=== PATIENT | male | born 1985 | race Caucasian/White ===

== ENCOUNTER 2022-06-30 13:55 | Inpatient (IN) | payer MEDICAID, OTHER, SELFPAY ==
[2022-06-30 14:26] VITALS: BP 159/97; PULSE 99; RESP 18; TEMP 36.7; O2SAT 96; BMI 28.1
--- NOTE | 2022-06-30 14:29 | ECG_ITS ---
Test Reason : ETOH USE Blood Pressure : / mmHG Vent. Rate : 106 BPM Atrial Rate : 106 BPM P-R Int : 130 ms QRS Dur : 082 ms QT Int : 342 ms P-R-T Axes : 111 124 152 degrees QTc Int : 454 ms Suspect limb lead reversal, interpretation assumes no reversal Sinus tachycardia Left posterior fascicular block Abnormal ECG No previous ECGs available Referred By: Generic ED Physician Electronically Signed By:JAMIA FARMER
[2022-06-30] MEDS: diazePAM 2 MG TABLET PO (15:27)
[2022-06-30] MEDS: diphenhydrAMINE HCL 50 MG/ML VIAL IM (15:28)
--- NOTE | 2022-06-30 15:31 | PC.NURSE ---
Benadryl IM given for dystonic reaction to Haldol- Haldol administered last night by [facility].
--- NOTE | 2022-06-30 15:43 | ED_ITS ---
HPI - Psych General Chief Complaint: Psychiatric Symptoms Stated Complaint: SI AND WITHDRAWLS Time Seen by Provider: 06/30/22 14:47 Source: patient Mode of arrival: ambulatory Limitations: no limitations History of Present Illness HPI Narrative: 36-year-old male with a past medical history of opioid abuse and alcohol abuse reports he last drink whiskey last night approximately half a gal and reports he has also been using Suboxone that he has been buying off the street last use like 3 days ago presenting to the ER with complaints of increased anxiety/depression with SI thoughts no plan in place wanting detox. Reports of alcohol withdrawal seizures. Last alcohol withdrawal seizure was 6 months ago. Denies any fevers, chills, dizziness, headaches, neck pain/stiffness, trouble swallowing breathing, sore throat, cough, nausea/vomiting/diarrhea constipation, black or bloody stools, abdominal pain, back pain, flank pain, dysuria, hematuria, abnormal penile discharge, recent travel or sick contacts, any a uditory visual hallucinations or any other symptoms complaints or concerns at this time. MD complaint: suicidal ideation, feels depressed, anxiety, substance abuse and alcohol abuse Onset (ago): day(s) Duration: constant History of same: Yes Relieving factors: none Exacerbating factors: none Context: recent alcohol abuse and recent drug abuse Associated psychiatric symptoms: depression, suicidal ideation and racing thoughts Associated symptoms: denies other symptoms Treatments prior to arrival: none If self harm: admits thoughts of self harm Related Data Allergies Allergy/AdvReac Type Severity Reaction Status Date / Time No Known Allergies Allergy Mild NONE Unverified 06/30/20 17:38 Review of Systems Review of Systems: Constitutional : No Fever, No Chills ENT/Mouth : No Ear Pain, No Nasal Congestion, No sore throat Eyes: No Eye Pain, No Swelling, No Redness Cardiovascular : No Chest Pain, No SOB Respiratory : No Cough, No Sputum, No Dyspnea Gastrointestinal : No ingestions, No Nausea, No Vomiting, No Diarrhea, No Hematochezia, No Melena Genitourinary : No Dysuria, No Urinary Frequency, No Hematuria Musculoskeletal : No Myalgias Skin : No Skin Lesions, No rash Neuro : No Weakness, No Numbness, No Paresthesias, No Dizziness, No Headache Psych : + Anxiety, + Depression, + SI, + thoughts of self injury, No HI, No AVH, Heme/Lymph: No Lymphadenopathy Endocrine : No Polyuria, No Polydipsia Yes all other systems are reviewed and are negative [facility] Past Medical History Attestation statement: The following information was validated with the patient. Source: old records reviewed and nursing notes reviewed Social History Social History Advance Directives: No Advance Directives Information Provided: No Physical Exam Vital Signs: Vital Signs: Last Vital Signs Temp 98.0 F 06/30/22 14:26 Pulse 109 H 06/30/22 20:14 Resp 17 06/30/22 20:14 BP 124/82 06/30/22 20:14 Pulse Ox 97 06/30/22 20:14 O2 Del Method 06/30/22 20:14 BMI result Body Mass Index 28.1 vital signs have been reviewed as normal and appeared to be correct. Blood pressure normal. Heart rate normal. Respiration rate normal. Temperature normal. Oxygen saturation normal. Appearance: Alert. Oriented X3. No acute distress. Head: Normal external exam. Normocephalic. Atraumatic. No Davis signs noted. No raccoon eyes noted Eyes: PERRLA. EOMI. Conjunctiva and sclera normal. Eyelids normal. ENT: EAC normal. TM's Normal. Pharynx normal. Uvula midline. Moist mucous membranes. No trismus noted. No drooling noted. No muffled voice noted. Neck: Normal inspection. Neck supple. FROM. No adenopathy. Thyroid Normal. No meningeal signs. No neck mass noted. CVS: Normal heart rate and rhythm. Heart sound normal. No murmurs noted. Pulses normal throughout. Respiratory: No respiratory distress. Painless inspiration. Breath sounds normal. No wheezes/rales/rhonchi noted. Chest nontender. No accessory muscle usage noted or decreased air movement noted. Abdomen: Soft and nontender. Bowel sounds normal in all 4 quadrants. No distention noted. No organomegaly noted. No visible injury noted. Back: No CVA tenderness. Full range of motion noted. Skin: Skin warm and dry. Normal skin color. Normal skin turgor. No rashes/lesions/lacerations noted. Extremities: No lower extremity edema. Extremities exhibit normal range of motion. Extremities nontender. Neuro: Oriented X 3. No motor deficit. No sensory deficit. Reflexes normal. CN's II-XII intact bilaterally? Psych: Appearance grossly normal, well-kept, mental status normal, speech and movement normal, speech clear, patient appears very sad and anxious along with depressed. Is cooperative. Normal thought process. Normal thought content. Normal good insight. Judgment good. Course Course Course Narrative: 14:50pm - 36-year-old male with a past medical history of opioid abuse and alcohol abuse reports he last drink whiskey last night approximately half a gal and reports he has also been using Suboxone that he has been buying off the street last use like 3 days ago presenting to the ER with complaints of increased anxiety/depression with SI thoughts no plan in place wanting detox. Reports of alcohol withdrawal seizures. Last alcohol withdrawal seizure was 6 months ago. Plan: Will obtain labs, UA, COVID swab. Provide 50 mg of IM Benadryl and 2 mg of p.o. Valium and re-evaluate. Reevaluation(s) Reevaluation #1: - UA within normal limits. - drug urine screen negative. - patient negative for COVID - patient was evaluated by Natalia and patient will be inpatient Section 12 bed search. Will continue to monitor and still awaiting labs. Time: 20:27 [facility] - Psych Medical Records Attestation: I reviewed the patient's medical records. Lab Data Attestation: I reviewed the patient's lab results. Labs: Lab Results 06/30/22 06/30/22 06/30/22 Range/Units 15:20 15:22 15:22 Urine Color Yellow Urine Appearance Clear Urine pH 7.0 (5.0-9.0) Ur Specific [place] 1.015 (1.005-1.025) Urine Protein Negative (Neg-Trace) mg/dL Urine Glucose (UA) Negative (Negative) mg/dL Urine Ketones Negative (Negative) mg/dL Urine Blood Negative (Negative) Urine Nitrite Negative (Negative) Ur Leukocyte Esterase Negative (Negative) Urine Opiates Screen Not Detected (Not Detect) Urine Fentanyl Screen Not Detected (Not Detect) Ur Barbiturates Screen Not Detected (Not Detect) Ur Phencyclidine Scrn Not Detected (Not Detect) Ur Amphetamines Screen Not Detected (Not Detect) U Benzodiazepines Scrn Not Detected (Not Detect) Urine Cocaine Screen Not Detected (Not Detect) U Marijuana (THC) Screen Not Detected (Not Detect) COVID-19 (ERIC) Negative (Negative) COVID-19 Clin Com See Note Discharge Plan Discharge Clinical Impression: Depression, Suicidal ideation, Acute anxiety, Opioid abuse, Alcohol abuse Patient Disposition: Still a Patient
[2022-06-30 15:50] LABS: Amphetamine Screen Urine Not Detected (Not Detect); Appearance Urine Clear; Barbiturates, Urine Not Detected (Not Detect); Benzodiazepines Screen Urine Not Detected (Not Detect); Cannabinoid Screen Urine Not Detected (Not Detect); Cocaine Screen Urine Not Detected (Not Detect); Color Urine Yellow; Fentanyl, urine Not Detected (Not Detect); Glucose Urine UA Negative (Negative); Leukocyte Esterase Urine Negative (Negative); Nitrite Urine Negative (Negative); Opiate Screen Urine Not Detected (Not Detect); Phencyclidine Screen Urine Not Detected (Not Detect); Specific Gravity - Urine 1.015 (1.005-1.025); Urine Blood Negative (Negative); Urine Ketones Negative (Negative); Urine Protein Negative (Neg-Trace)
[2022-06-30 15:52] LABS: COVID-19 Test Negative (Negative)
[2022-06-30 16:00] VITALS: RESP 16
--- NOTE | 2022-06-30 16:38 | PC.NURSE ---
Rocío COMBS notified of difficult blood draw-pushing PO fluids at this time.
[2022-06-30 18:00] VITALS: RESP 18
[2022-06-30 20:14] VITALS: BP 124/82; PULSE 109; RESP 17; O2SAT 97
[2022-06-30] MEDS: cloNIDine HCL 0.1 MG TABLET PO (20:22)
[2022-06-30 20:51] LABS: MANUAL DIFF FLAG NO
[2022-06-30 20:53] LABS: Basophils Absolute Auto 0.1 X10*3/uL (0.0-0.2); Basophils Percent Auto 0.7 % (0-2); Eosinophils Percent Auto 0.2 % (0-4); Hematocrit 42.8 % (42.0-52.0); Hemoglobin 15.7 g/dl (14.0-18.0); Imm Gran Abs Auto 0.03 X10*3/uL (0.00-0.03); Imm Gran Pct Auto 0.3 % (0.0-0.4); Lymphocytes Absolute Auto 2.3 X10*3/uL (1.2-4.9); Lymphocytes Percent Auto 22.5 % (20-40); Mean Corpuscular HGB Conc 36.7 g/dl (31.0-36.0); Mean Corpuscular Hemoglobin 31.2 pg (27.0-33.0); Mean Corpuscular Volume 85.1 fL (80.0-98.0); Mean Platelet Volume 9.2 fL (9.4-12.4); Monocytes Absolute Auto 0.8 X10*3/uL (0.1-1.2); Monocytes Percent Auto 7.5 % (2-11); Neutrophils Absolute Auto 7.1 x10*3/uL (2.0-8.3); Neutrophils Percent Auto 68.8 % (45-73); Platelet Count 310 X10*3/uL (160-400); Red Blood Count 5.03 X10*6/uL (4.60-5.80); Red Cell Distribution Width 11.8 % (11.0-16.0); White Blood Count 10.3 X10*3/uL (4.8-10.8)
[2022-06-30 21:12] LABS: Lipase 72 U/L (8-78)
[2022-06-30 21:14] LABS: Alanine Aminotransferase 25 U/L (0-40); Albumin Level 4.7 g/dL (3.5-5.0); Alkaline Phosphatase 65 U/L (39-117); Anion Gap 17 (12-20); Aspartate Amino Transferase 45 U/L (5-37); Bilirubin Direct 0.3 mg/dL (0.0-0.5); Bilirubin Total 0.8 mg/dL (0.0-1.0); Blood Urea Nitrogen 9 mg/dL (9-16); Calcium 9.8 mg/dL (8.4-10.2); Carbon Dioxide 24 mmol/L (22-29); Chloride 103 mmol/L (96-108); Estimated Glomerular Filt Rate > 60; Ethanol < 10 mg/dL; Glucose Random 109 mg/dL (60-115); Potassium 3.9 mmol/L (3.3-5.1); Sodium 140 mmol/L (135-145); Total Protein 7.7 g/dL (6.5-8.0)
[2022-06-30] MEDS: LORazepam 1 MG TABLET 2 MG PO (21:43)
[2022-07-01 04:30] VITALS: BP 109/47; PULSE 46; RESP 16; TEMP 36.7; O2SAT 95
--- NOTE | 2022-07-01 06:14 | PC.NURSE ---
Patient slept through the night, no distress observed/reported, behavior appropriate and non concerning, patient is currently not on any medication, asymptomatic of ETOH withdrawal, patient did request medication for withdrawal, UTOX and ETOH negative, Ativan 2 mg PO at 2021 and Clonidine 0.1 mg po administered with + effect, disposition per care team is section 12 inpatient bed search, VSS, will continue to monitor.
[2022-07-01] MEDS: cloNIDine HCL 0.1 MG TABLET PO ×2 (09:02→16:43)
[2022-07-01] MEDS: LORazepam 1 MG TABLET PO ×3 (09:54→20:50)
--- NOTE | 2022-07-01 12:03 | PHA.MEDREC ---
Pharmacy Consult ? Medication Reconciliation Pharmacy has completed the medication reconciliation. Reviewed med rec done by nurse (George). Patient reports no prescription med use, which matches claim history. However, as per Rocío GARCIA Physis[facility] report, patient attests to buying Suboxone off the street with use dating back to 3 days ago.
--- NOTE | 2022-07-01 14:40 | PC.ADMIT ---
36 year old cisgender kiswahili speaking male admitted on a CV, 15 minute checks. pt presents as depressed and anxious with suicidal thoughts. Had a plan to cut self with a knife and bleed out. Denies Ah/Vh. Engages in assessment. Pt is verbal. Pt notes using 2 liters of alcohol daily as well as using fiances suboxone. will monitor for withdrawl. No acute medical issues noted at this time. Pt is help seeking and agrees to staff if feeling unsafe but denies current active SI.
[2022-07-01] MEDS: Nicotine Polacrilex 2 MG GUM BUCCAL (15:13)
[2022-07-01 15:59] VITALS: BP 157/94; PULSE 82; TEMP 36.7; O2SAT 96
[2022-07-01] MEDS: Nicotine 21 MG PATCH.TD24 TRANSDERMA (16:32)
[2022-07-01] MEDS: hydrOXYzine HCL 25 MG TABLET PO (16:32)
[2022-07-01] MEDS: diazePAM 2 MG TABLET PO ×2 (17:16→19:57)
[2022-07-01] MEDS: QUEtiapine Fumarate 50 MG TABLET PO (17:37)
[2022-07-01] MEDS: traZODone HCL 50 MG TABLET PO (20:50)
[2022-07-02] MEDS: traZODone HCL 50 MG TABLET PO ×3 (03:58→22:30)
[2022-07-02] MEDS: LORazepam 1 MG TABLET PO ×2 (03:58→11:01)
[2022-07-02] MEDS: hydrOXYzine HCL 50 MG TABLET PO ×2 (04:03→16:18)
[2022-07-02 06:00] VITALS: BP 121/78; PULSE 88; RESP 18; TEMP 36.7; O2SAT 97
[2022-07-02] MEDS: diazePAM 2 MG TABLET PO (08:04)
[2022-07-02] MEDS: Nicotine 21 MG PATCH.TD24 TRANSDERMA (08:04)
[2022-07-02] MEDS: QUEtiapine Fumarate 50 MG TABLET PO (08:55)
[2022-07-02 09:09] LABS: Estimated Average Glucose 103 mg/dL; Hemoglobin A1c % 5.2 %
[2022-07-02 09:26] LABS: Alanine Aminotransferase 30 U/L (0-40); Albumin Level 4.3 g/dL (3.5-5.0); Alkaline Phosphatase 62 U/L (39-117); Anion Gap 16 (12-20); Aspartate Amino Transferase 38 U/L (5-37); Bilirubin Total 0.6 mg/dL (0.0-1.0); Blood Urea Nitrogen 10 mg/dL (9-16); Calcium 9.2 mg/dL (8.4-10.2); Carbon Dioxide 22 mmol/L (22-29); Chloride 105 mmol/L (96-108); Cholesterol 173 mg/dL; Creatinine Clr Calc Pharmacy 137.4; Estimated Glomerular Filt Rate > 60; Glucose Fasting 146 mg/dL (60-99); HDL Cholesterol 49 mg/dL; LDL Cholesterol Calculated 94 mg/dl; Potassium 4.1 mmol/L (3.3-5.1); Sodium 139 mmol/L (135-145); Triglycerides 153 mg/dL
[2022-07-02 09:43] LABS: Free T4 (Free Thyroxine) 0.94 ng/dL (0.71-1.85); Thyroid Stimulating Hormone 1.71 uIU/mL (0.32-4.0)
[2022-07-02 10:02] LABS: Folate 13.4 ng/mL (> or = 4.0); Vitamin B12 519 pg/mL (200-900)
--- NOTE | 2022-07-02 10:45 | MHC.CARE ---
Authorization: Michelle alfonsoays 07/01 to 07/03 [id number]
[2022-07-02] MEDS: Buprenorphine/Naloxone 4/1 mg FILM 1 FILM SUBLINGUAL (12:41)
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
[2022-07-02] MEDS: Buprenorphine/Naloxone 2/0.5mg FILM 1 FILM SUBLINGUAL (15:15)
[2022-07-02] MEDS: cloNIDine HCL 0.1 MG TABLET PO (16:18)
--- NOTE | 2022-07-02 17:39 | PC.NURSE ---
pt signed 3 day notice on 07/01/22, up on 07/04/22.
[2022-07-02 18:00] VITALS: BP 142/91; PULSE 98; TEMP 36.9; O2SAT 94
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
[2022-07-02] MEDS: lamoTRIgine 25 MG TABLET PO (20:48)
[2022-07-02] MEDS: Lithium Carbonate ER 300 MG TABLET.ER PO (20:48)
[2022-07-03] MEDS: hydrOXYzine HCL 50 MG TABLET PO ×3 (00:15→23:06)
[2022-07-03] MEDS: cloNIDine HCL 0.1 MG TABLET PO ×3 (00:18→20:46)
[2022-07-03] MEDS: Milk of Magnesia 30 ML ORAL.SUSP PO (00:25)
[2022-07-03] MEDS: Nicotine Polacrilex 2 MG GUM BUCCAL (04:39)
[2022-07-03 05:48] VITALS: BP 111/73; PULSE 83; RESP 16; TEMP 36.4; O2SAT 95
[2022-07-03] MEDS: Buprenorphine/Naloxone 2/0.5mg FILM 1 FILM SUBLINGUAL (08:20)
[2022-07-03] MEDS: FLUoxetine HCl 10 MG CAPSULE PO (08:21)
[2022-07-03] MEDS: diazePAM 2 MG TABLET 1 MG PO (08:21)
[2022-07-03] MEDS: Nicotine 21 MG PATCH.TD24 TRANSDERMA (08:22)
[2022-07-03 11:26] LABS: Blood Urea Nitrogen 11 mg/dL (9-16); Estimated Glomerular Filt Rate > 60
[2022-07-03 11:51] LABS: TSH reflex Free T4 1.95 uIU/mL (0.32-4.0)
[2022-07-03] MEDS: Lactulose 20 GM/30 ML SOLUTION 10 GM PO (15:11)
--- NOTE | 2022-07-03 16:28 | HO.PSYCHPN ---
Subjective Subjective Date of Service: 07/03/22 Reason For Visit: SUICIDAL IDEATIONS Interim History: Patient reports he is feeling much better today. He says he is feeling calmer and anxious thoughts are not really bothering him much. He said he has not wondered if his loves him or wants to be with him and has not had any urge to call her to be reassured this whole day which is a relief to him. He feels his mind is more focused as well and less captive to worries. Patient shares how big a step this is for him to finally be addressing these issues that he has avoided dealing with for some time. Discussed medications and patient asked for increase of Prozac. Senior Category Manager shared how since his 3 days up tomorrow and he is adamant about discharge, wanting to get back to school, it is premature to change his medications at this time. Senior Category Manager explained how with a diagnosis of bipolar disorder which seems likely, Prozac at increased dose for a person who is not on a therapeutic dose of a mood stabilizer could trigger a manic episode. Patient understands and will follow up with outpatient provider. Mental Status Exam Mental Status Exam Narrative: Pt is alert and oriented; behavior is cooperative, calm, friendly; patient is not in distress; dressed in casual attire, well groomed with combed hair, good hygiene; mood is described as calmer and affect congruent; eye contact appropriate; Speech is normal rate, volume and prosody, not hyperverbal, not pressured; no psychomotor agitation/retardation present; thought process is organized and goal directed; Thought content is on tx, getting back to school, finally addressing his anxiety issues; denies obsessive worries; otherwise pertinent to relevant topics; no paranoid ideations or grandiosity; denies any SI/HI. There is no evidence of perceptual disturbance. Patients insight and judgment are intact. Diagnostics Vital Signs (24Hr): Vital Signs - 24 hr 07/02/22 18:00 07/03/22 05:48 Temperature 98.4 F 97.5 F Pulse Rate 98 83 Respiratory Rate 16 Blood Pressure 142/91 H 111/73 Pulse Oximetry 94 95 Oxygen Delivery Method Room Air Room Air BMI result Body Mass Index 28.1 Labs Results: 06/30/22 20:47 07/03/22 11:07 Labs: Laboratory Results - last 48 hr 07/02/22 07/02/2222 08:16 08:16 08:16 Sodium 139 Potassium 4.1 Chloride 105 Carbon Dioxide 22 Anion Gap 16 BUN 10 Creatinine 0.76 Estim Creat Clear Calc 137.4 Estimated GFR > 60 Fasting Glucose 146 H Estimat Average Glucose 103 Hemoglobin A1c % 5.2 Calcium 9.2 D Total Bilirubin 0.6 AST 38 H ALT 30 Alkaline Phosphatase 62 Total Protein 7.0 Albumin 4.3 Triglycerides 153 Cholesterol 173 LDL Cholesterol, Calc 94 HDL Cholesterol 49 Vitamin B12 519 Folate 13.4 TSH 1.71 Free T4 0.94 07/03/22 11:07 Sodium Potassium Chloride Carbon Dioxide Anion Gap BUN 11 Creatinine 0.73 Estim Creat Clear Calc 143.0 Estimated GFR > 60 Fasting Glucose Estimat Average Glucose Hemoglobin A1c % Calcium Total Bilirubin AST ALT Alkaline Phosphatase Total Protein Albumin Triglycerides Cholesterol LDL Cholesterol, Calc HDL Cholesterol Vitamin B12 Folate TSH 1.95 Free T4 Medications Medications Current Medications Acetaminophen (Acetaminophen 325 Mg Tablet) 650 mg PO Q6H PRN PRN Reason: Headache/Pain Mild Scale (1-3) Al Hydroxide/Mg Hydroxide (Magnesium Hydrox/Alum Hydrox 30 Ml Oral.Susp) 30 ml PO Q6H PRN PRN Reason: Heartburn/Nausea Buprenorphine/Naloxone (Buprenorphine/Naloxone 2/0.5mg Film) 1 film SUBLINGUAL DAILY [facility] Last Admin: 07/03/22 08:20 Dose: 1 film Clonidine HCl (Clonidine Hcl 0.1 Mg Tablet) 0.1 mg PO Q6H PRN; Protocol PRN Reason: Anxiety Last Admin: 07/03/22 13:12 Dose: 0.1 mg Fluoxetine HCl (Fluoxetine Hcl 10 Mg Capsule) 10 mg PO DAILY [facility] Last Admin: 07/03/22 08:21 Dose: 10 mg Hydroxyzine HCl (Hydroxyzine Hcl 50 Mg Tablet) 50 mg PO QID PRN PRN Reason: Anxiety Last Admin: 07/03/22 13:12 Dose: 50 mg Lactulose (Lactulose 20 Gm/30 Ml Solution) 10 gm PO DAILY [facility] Last Admin: 07/03/22 15:11 Dose: 10 gm Lamotrigine (Lamotrigine 25 Mg Tablet) 25 mg PO BEDTIME [facility] Last Admin: 07/02/22 20:48 Dose: 25 mg Hartington Carbonate (Hartington Carbonate Er 300 Mg Tablet.Er) 300 mg PO BEDTIME [facility] Last Admin: 07/02/22 20:48 Dose: 300 mg Loperamide HCl (Loperamide Hcl 2 Mg Capsule) 2 mg PO Q6H PRN PRN Reason: Diarrhea Magnesium Hydroxide (Milk Of Magnesia 30 Ml Oral.Susp) 30 ml PO DAILY PRN PRN Reason: Constipation Last Admin: 07/03/22 00:25 Dose: 30 ml Nicotine (Nicotine 21 Mg Patch.Td24) 21 mg TRANSDERMA DAILY [facility] Last Admin: 07/03/22 08:22 Dose: 21 mg Nicotine Polacrilex (Nicotine Polacrilex 2 Mg Gum) 2 mg BUCCAL Q2H PRN PRN Reason: Nicotine Cravings Last Admin: 07/03/22 04:39 Dose: 2 mg Ondansetron HCl (Ondansetron Odt 4 Mg Tab.Rapdis) 4 mg TRANSLINGU Q6H PRN PRN Reason: Nausea and Vomiting Trazodone HCl (Trazodone Hcl 50 Mg Tablet) 50 mg PO BEDTIME PRN PRN Reason: Insomnia Last Admin: 07/02/22 22:30 Dose: 50 mg Allergies Allergies Allergy/AdvReac Type Severity Reaction Status Date / Time No Known Allergies Allergy Mild NONE Unverified 06/30/20 17:38 Assessment & Plan Assessment & Plan (1) OCD (obsessive compulsive disorder): Status: Acute Code(s): F42.9 - Obsessive-compulsive disorder, unspecified (2) Bipolar 2 disorder: Status: Acute Code(s): F31.81 - Bipolar II disorder (3) Opioid abuse: Status: Acute Code(s): F11.10 - Opioid abuse, uncomplicated (4) Alcohol abuse: Status: Acute Code(s): F10.10 - Alcohol abuse, uncomplicated (5) Opioid dependence on agonist therapy: Status: Acute Code(s): F11.20 - Opioid dependence, uncomplicated Plan Patient is a 36-year-old male with history of opioid abuse, anxiety who presents for worsening OCD-like anxiety and depression with SI in the context of increased stress compounded by a single day of relapse with alcohol (otherwise sober for 4 years) and having been sneaking his Suboxone.. -Suicidality was only in the context of 1 day binge of alcohol and is fully resolved; patient denies any other recent SI. -Patient meets criteria for both OCD, and bipolar disorder. Patient symptoms are also a can to ANGELICA diagnosis however it is difficult to untangle if these excessive worries are just due to OCD so ANGELICA will remain a rule out for now; of note, treatment for OCD and ANGELICA a both SSRI/SNRI. Patient has never been on medications before. He agrees to start lithium for mood stability so that he can also get on Prozac for his OCD symptoms. Patient was also very interested in Lamictal, since it has indication for both mood stability and OCD as well as anxiety, however he is ambivalent about this medication given the long titration period. Patient also talked about excessive sex drive, outside of manic episodes but again it is unclear at this time if this is also related to anxiety/OCD or if it is a separate issue. -Risks/side effects Briefly discussed, however patient did not want to hear about them in much detail, saying he's concerned he will get too anxious about them and hesitate; pt said he'll do his own research when he gets home (his is also on both lithium and Lamictal). Patient decided Start Lamictal as well so that he will have the option to eventually get off lithium once Lamictal is at a therapeutic dose. -patient has 3 day notice an and wants to discharge because he is worried about getting further behind in school; he understands the risks of being under medicated as well as not being able to monitor lithium dose but says he will follow-up with outpatient providers. Patient's present during admission; she agrees with treatment plan. He does not think patient is unsafe but she is worried about potential for further relapse and how it could interfere with her sobriety 07/03 patient is notably much more calm; says that obsessive worries are really not so bothersome today which is a relief for him. He is adamant about discharging tomorrow, wanting to get back to school, not wanting to get further behind in his course work. He accepts that further titration is of medication will not be possible at this time and that he will have to follow up with outpatient provider, however he says he is committed to doing so. Patient feels that maintenance dose of Suboxone is the right amount and wants to continue on this dose. Patient is future oriented, with good insight into his illness and need for treatment; he remains without any SI, having been a momentary thought said during intoxication and he is returning to his supportive . Patient is not in imminent risk for harm to self or others and his request for discharge honored. PLAN: 3 day q15 min Continue Hartington ER 300mg qhs Continue Prozac 10mg daily Continue Lamictal 25mg qhs Continue Suboxone 2/1mg taper off and dc Diazepam dc ciwa I spent minutes with the patient and/or on the patient floor today, greater than?50% of which was spent counseling/coordinating care. Patient educated on: diagnosis, medication risk/benefits, substance abuse and therapeutic strategies Informed Consent: understands Reason for contiued inpatient stay Substantial Risk for: stable for discharge
[2022-07-03 18:00] VITALS: BP 147/84; PULSE 97; TEMP 36.6; O2SAT 97
[2022-07-03] MEDS: Lithium Carbonate ER 300 MG TABLET.ER PO (20:41)
[2022-07-03] MEDS: lamoTRIgine 25 MG TABLET PO (20:41)
[2022-07-03] MEDS: traZODone HCL 50 MG TABLET PO ×2 (20:42→23:06)
[2022-07-04] MEDS: Lactulose 20 GM/30 ML SOLUTION 10 GM PO (08:40)
[2022-07-04] MEDS: Buprenorphine/Naloxone 2/0.5mg FILM 1 FILM SUBLINGUAL (08:41)
[2022-07-04] MEDS: FLUoxetine HCl 10 MG CAPSULE PO (08:41)
[2022-07-04] MEDS: Nicotine 21 MG PATCH.TD24 TRANSDERMA (08:41)
[2022-07-04] MEDS: cloNIDine HCL 0.1 MG TABLET PO (11:31)
[2022-07-04 11:33] VITALS: BP 134/74; PULSE 106
--- NOTE | 2022-07-04 11:42 | P.DS_ITS ---
DS: Providers Provider Date of Service: 07/04/22 Date of admission: 07/01/22 11:30 Date of discharge: 07/04/22 Primary care physician: Unknown Physician Attending physician on admission: Chava Del Rosario Attending physician on discharge: Chava Del Rosario DS: Diagnosis Discharge Diagnosis (1) OCD (obsessive compulsive disorder): Status: Acute (2) Bipolar 2 disorder: Status: Acute (3) Opioid abuse: Status: Acute (4) Alcohol abuse: Status: Acute (5) Opioid dependence on agonist therapy: Status: Acute DS: Medications Discharge Medications Home Medications: Previous Rx's Medication Instructions Recorded buprenorphine 2 mg-naloxone 0.5 mg 1 film sublingual DAILY #0 ea 07/04/22 sublingual film (Suboxone) clonidine HCl 0.1 mg tablet 0.1 mg PO TID PRN Anxiety 30 days 07/04/22 #90 tabs fluoxetine 10 mg capsule 10 mg PO DAILY 30 days #30 caps 07/04/22 lamotrigine 25 mg tablet See Rx Instructions .Route 07/04/22 .COMPLEX 30 days #48 tabs lithium carbonate 300 mg 300 mg PO BEDTIME 30 days #30 tabs 07/04/22 tablet,extended release nicotine 21 mg/24 hr daily 21 mg transdermal DAILY PRN 07/04/22 transdermal patch nicotine cravings 28 days #28 ea trazodone 50 mg tablet 50 mg PO BEDTIME PRN Insomnia 30 07/04/22 days #30 tabs Mental Status Exam Mental Status Exam Narrative: Pt is alert and oriented; behavior is cooperative, overall calm, friendly; patient is not in distress; dressed in casual attire, well groomed with combed hair, good hygiene; mood is described as anxious (about discharge) and affect congruent; eye contact appropriate; Speech is normal rate, volume and prosody, not hyperverbal, not pressured; no psychomotor agitation/retardation present; thought process is organized and goal directed; Thought content is on tx, getting back to school, finally addressing his anxiety issues; denies obsessive worries; otherwise pertinent to relevant topics; no paranoid ideations or grandiosity; denies any SI/HI. There is no evidence of perceptual disturbance. Patients insight and judgment are intact. Data Data Completed and Pending Completed studies during hospitalization [Text1]: 06/30/22 06/30/22 06/30/22 15:20 15:22 15:22 WBC RBC Hgb Hct MCV MCH MCHC RDW Plt Count MPV Immature Gran % (Auto) Neut % (Auto) Lymph % (Auto) Harper % (Auto) Eos % (Auto) Baso % (Auto) Lymph # (Auto) Harper # (Auto) Eos # (Auto) Baso # (Auto) Abs Immat Gran (auto) Absolute Neuts (auto) Absolute Nucleated RBC Nucleated RBC % (auto) Sodium Potassium Chloride Carbon Dioxide Anion Gap BUN Creatinine Estim Creat Clear Calc Estimated GFR Random Glucose Fasting Glucose Estimat Average Glucose Hemoglobin A1c % Calcium Total Bilirubin Direct Bilirubin AST ALT Alkaline Phosphatase Total Protein Albumin Triglycerides Cholesterol LDL Cholesterol, Calc HDL Cholesterol Lipase Vitamin B12 Folate TSH Free T4 Urine Color Yellow Urine Appearance Clear Urine pH 7.0 Ur Specific Lincoln 1.015 Urine Protein Negative Urine Glucose (UA) Negative Urine Ketones Negative Urine Blood Negative Urine Nitrite Negative Ur Leukocyte Esterase Negative Urine Opiates Screen Not Detected Urine Fentanyl Screen Not Detected Ur Barbiturates Screen Not Detected Ur Phencyclidine Scrn Not Detected Ur Amphetamines Screen Not Detected U Benzodiazepines Scrn Not Detected Urine Cocaine Screen Not Detected U Marijuana (THC) Screen Not Detected Ethyl Alcohol COVID-19 (ERIC) Negative COVID-19 Clin Com See Note 06/30/22 06/30/22 06/30/22 20:47 20:47 20:47 WBC 10.3 RBC 5.03 Hgb 15.7 Hct 42.8 MCV 85.1 MCH 31.2 MCHC 36.7 H RDW 11.8 Plt Count 310 MPV 9.2 L Immature Gran % (Auto) 0.3 Neut % (Auto) 68.8 Lymph % (Auto) 22.5 Harper % (Auto) 7.5 Eos % (Auto) 0.2 Baso % (Auto) 0.7 Lymph # (Auto) 2.3 Harper # (Auto) 0.8 Eos # (Auto) 0.0 Baso # (Auto) 0.1 Abs Immat Gran (auto) 0.03 Absolute Neuts (auto) 7.1 Absolute Nucleated RBC 0.000 Nucleated RBC % (auto) 0.0 Sodium 140 Potassium 3.9 Chloride 103 Carbon Dioxide 24 Anion Gap 17 BUN 9 Creatinine 0.73 Estim Creat Clear Calc 143.0 Estimated GFR > 60 Random Glucose 109 Fasting Glucose Estimat Average Glucose Hemoglobin A1c % Calcium 9.8 Total Bilirubin 0.8 Direct Bilirubin 0.3 AST 45 H ALT 25 Alkaline Phosphatase 65 Total Protein 7.7 Albumin 4.7 Triglycerides Cholesterol LDL Cholesterol, Calc HDL Cholesterol Lipase 72 Vitamin B12 Folate TSH Free T4 Urine Color Urine Appearance Urine pH Ur Specific Lincoln Urine Protein Urine Glucose (UA) Urine Ketones Urine Blood Urine Nitrite Ur Leukocyte Esterase Urine Opiates Screen Urine Fentanyl Screen Ur Barbiturates Screen Ur Phencyclidine Scrn Ur Amphetamines Screen U Benzodiazepines Scrn Urine Cocaine Screen U Marijuana (THC) Screen Ethyl Alcohol < 10 COVID-19 (ERIC) COVID-19 Dctio 07/02/22 07/02/22 07/02/22 08:16 08:16 08:16 WBC RBC Hgb Hct MCV MCH MCHC RDW Plt Count MPV Immature Gran % (Auto) Neut % (Auto) Lymph % (Auto) Harper % (Auto) Eos % (Auto) Baso % (Auto) Lymph # (Auto) Harper # (Auto) Eos # (Auto) Baso # (Auto) Abs Immat Gran (auto) Absolute Neuts (auto) Absolute Nucleated RBC Nucleated RBC % (auto) Sodium 139 Potassium 4.1 Chloride 105 Carbon Dioxide 22 Anion Gap 16 BUN 10 Creatinine 0.76 Estim Creat Clear Calc 137.4 Estimated GFR > 60 Random Glucose Fasting Glucose 146 H Estimat Average Glucose 103 Hemoglobin A1c % 5.2 Calcium 9.2 D Total Bilirubin 0.6 Direct Bilirubin AST 38 H ALT 30 Alkaline Phosphatase 62 Total Protein 7.0 Albumin 4.3 Triglycerides 153 Cholesterol 173 LDL Cholesterol, Calc 94 HDL Cholesterol 49 Lipase Vitamin B12 519 Folate 13.4 TSH 1.71 Free T4 0.94 Urine Color Urine Appearance Urine pH Ur Specific Lincoln Urine Protein Urine Glucose (UA) Urine Ketones Urine Blood Urine Nitrite Ur Leukocyte Esterase Urine Opiates Screen Urine Fentanyl Screen Ur Barbiturates Screen Ur Phencyclidine Scrn Ur Amphetamines Screen U Benzodiazepines Scrn Urine Cocaine Screen U Marijuana (THC) Screen Ethyl Alcohol COVID-19 (ERIC) COVID-19 Quan[employer] Com 07/03/22 11:07 WBC RBC Hgb Hct MCV MCH MCHC RDW Plt Count MPV Immature Gran % (Auto) Neut % (Auto) Lymph % (Auto) Harper % (Auto) Eos % (Auto) Baso % (Auto) Lymph # (Auto) Harper # (Auto) Eos # (Auto) Baso # (Auto) Abs Immat Gran (auto) Absolute Neuts (auto) Absolute Nucleated RBC Nucleated RBC % (auto) Sodium Potassium Chloride Carbon Dioxide Anion Gap BUN 11 Creatinine 0.73 Estim Creat Clear Calc 143.0 Estimated GFR > 60 Random Glucose Fasting Glucose Estimat Average Glucose Hemoglobin A1c % Calcium Total Bilirubin Direct Bilirubin AST ALT Alkaline Phosphatase Total Protein Albumin Triglycerides Cholesterol LDL Cholesterol, Calc HDL Cholesterol Lipase Vitamin B12 Folate TSH 1.95 Free T4 Urine Color Urine Appearance Urine pH Ur Specific Lincoln Urine Protein Urine Glucose (UA) Urine Ketones Urine Blood Urine Nitrite Ur Leukocyte Esterase Urine Opiates Screen Urine Fentanyl Screen Ur Barbiturates Screen Ur Phencyclidine Scrn Ur Amphetamines Screen U Benzodiazepines Scrn Urine Cocaine Screen U Marijuana (THC) Screen Ethyl Alcohol COVID-19 (ERIC) COVID-19 Clin Com DS: Summary Hospital Course Hospital Course: Patient is a 36-year-old male with history of opioid abuse, anxiety who presents for worsening OCD-like anxiety and depression with SI in the context of increased stress compounded by a single day of relapse with alcohol (otherwise sober for 4 years) and having been sneaking his Suboxone..? on admission 07/02 -Suicidality was only in the context of 1 day binge of alcohol and is fully resolved; patient denies any other recent SI.? -Patient meets criteria for both OCD, and bipolar disorder. Patient symptoms are also a can to ANGELICA diagnosis however it is difficult to untangle if these excessive worries are just due to OCD so ANGELICA will remain a rule out for now (though treatment for OCD and ANGELICA are both SSRI/SNRI's).? Patient has never been on medications before.? He agrees to start [place] for mood stability so that he can also get on Prozac for his OCD symptoms.? Patient was also very interested in Lamictal, since it has indication for both mood stability and OCD as well as anxiety, however he is ambivalent about this medication given the long titration period.? Patient also talked about excessive sex drive, outside of manic episodes but again it is unclear at this time if this is also related to anxiety/OCD or if it is a separate issue. Patient decided Start Lamictal as well so that he will have the option to eventually get off lithium once Lamictal is at a therapeutic dose. -patient has 3 day notice an and wants to discharge because he is worried about getting further behind in school; he understands the risks of being under medicated as well as not being able to monitor lithium dose but says he will follow-up with outpatient providers. Patient's present during admission; she agrees with treatment plan.? He does not think patient is unsafe but she is worried about potential for further relapse and how it could interfere with her sobriety -Risks/side effects of meds initially briefly discussed, however patient did not want to hear about them in much detail, saying he's concerned he will get too anxious about them and hesitate; pt said he'll do his own research when he gets home (his is also on both lithium and Lamictal).?Later on, engineering writer further reviewed risks/side effects of lithium and Lamictal including but not limited to Reza Dustin's, damage to kidneys and thyroid; pt was educated to stay hydrated; educated on and to watch for symptoms of lithium toxicity and the need to stay away from OTC NSAIDs (specifics reviewed) aside from Tylenol. Patient had placed 3 day notice due on 07/04 07/03 patient is notably much more calm; says that obsessive worries are really not so bothersome today which is a relief for him.? He is adamant about discharging tomorrow, wanting to get back to school, not wanting to get further behind in his course work.? He accepts that further titration is of medication will not be possible at this time and that he will have to follow up with outpatient provider, however he says he is committed to doing so (reviewed labs).? Patient feels that maintenance dose of Suboxone is the right amount and wants to continue on this dose. Patient has remained in good behavioral and impulse control on the unit and has been appropriate with both peers and staff.? Patient is future oriented, with good insight into his illness and need for treatment; he remains without any SI, having been a momentary thought said during intoxication and he is returning to his supportive .? Patient is not in imminent risk for harm to self or others and his request for discharge honored. Time spent discussing smoking cessation with patient: 3 to 10 minutes Status at Discharge Functional status at discharge: independent ambulation Overall status at discharge: patient is back to baseline Time Spent with Patient Time attestation: Total time spent providing and/or coordinating discharge services: Time spent: Less than 30 minutes Discharge Plan Discharge Patient Disposition: Home, Self-Care Discharge Diagnosis: OCD, with fair insight; Bipolar Type II [facility]] - 07/04/22 2:00 pm (Medication management assessment for Suboxone with [facility] at [facility]. ) [facility] [Other] - 07/10/22 12:00 pm (Intake for [facility] substance use treatment. Appointment intake is by telephone ) Dr. Stuart [Other] - 07/27/22 10:30 am (Follow-up discharge appointment for psychiatry Appointment in Person at [facility] in [place], [place].) Ofelia Ingram PA [Physician Java User Interface Developer] - 1 Week (LEFT MESSAGE TO CALL US BACK WITH F/U APPOINTMENT OR CALL PT. WITH F/U APPOINTMENT) [facility] [Primary Care Provider] - 1 Week Discharge Medications: New nicotine 21 mg/24 hr Patch 24 Hour 21 mg transdermal DAILY PRN (Reason: nicotine cravings) 28 Days Qty: 28 0RF Rx Instructions: remove at bedtime clonidine HCl 0.1 mg Tablet 0.1 mg PO TID PRN (Reason: Anxiety) 30 Days Qty: 90 0RF Protocol: Hold for SBP< HOLD for SBP < : 90 fluoxetine 10 mg Capsule 10 mg PO DAILY 30 Days Qty: 30 0RF lamotrigine 25 mg Tablet See Rx Instructions .ROUTE .COMPLEX 30 Days Qty: 48 0RF Rx Instructions: Take 1 tablet daily for 12 days; then take 1 tablet BID lithium carbonate 300 mg Tablet Extended Release 300 mg PO BEDTIME 30 Days Qty: 30 0RF trazodone 50 mg Tablet 50 mg PO BEDTIME PRN (Reason: Insomnia) 30 Days Qty: 30 0RF buprenorphine-naloxone [Suboxone] 2-0.5 mg Film 1 film sublingual DAILY Qty: 0 0RF Discharge Orders: Discharge Order (Routine); Ordered 07/04/22 Ordered By: Chava Del Rosario Diet: Regular diet Activity on Discharge: As tolerated Stand Alone Forms: Patient Portal Discharge page Care Plan Goals: Maintain mood and safe behaviors Take medications as prescribed Continue to pursue sobriety Practice coping skills Continue with outpatient providers and reach out to them as needed Health Concerns: Mood stability and behaviors Sobriety Plan of Treatment: Follow up with your Psychiatric provider and other outpatient providers regarding above concerns Take medications as prescribed Assessment: Risk assessment at time of discharge:? Patient was interviewed prior to discharge and found to be fully oriented and without any SI or HI. Patient has insight and demonstrates good judgment in terms of wanting to pursue treatment. Patient is not in imminent risk of harm to self or others and has a safety plan that includes presenting to the closest ER or calling 911 if feeling unsafe.? Patient has been observed closely by nursing and unit staff throughout admission; patient has not engaged in any behaviors that suggest dangerousness to self or others and has demonstrated appropriate behaviors and impulse control
== END 2022-07-04 14:08 | disposition home or self-care (01) | DRG 753 ==
LOC: HO.ED 20:18 → HO.PM5 07-01 11:45
PROVIDERS: Internal Medicine; Physician Assistant Medical; Psychiatry & Neurology Psychiatry; Admitting Provider Psychiatry & Neurology Psychiatry; Emergency Provider Emergency Medicine Emergency Medical Services; Visit Provider Psychiatry & Neurology Psychiatry
DX: F31.81 Bipolar II disorder (principal); R45.851 Suicidal ideations; F11.20 Opioid dependence, uncomplicated; F10.10 Alcohol abuse, uncomplicated; F42.9 Obsessive-compulsive disorder, unspecified; F17.210 Nicotine dependence, cigarettes, uncomplicated; Z20.822 Contact with and (suspected) exposure to COVID-19; Z71.6 Tobacco abuse counseling; Z79.899 Other long term (current) drug therapy
CPT/HCPCS: 36415; 80053; 80061; 80307; 81003; 82077; 82248; 82565; 82607; 82746; 83036; 83690; 84439; 84443; 84520; 85025; 87635; 93005; 96372; 99285; J1200

== ENCOUNTER → 2022-07-04 14:00 | Outpatient (BNVA) | payer MEDICAID, SELFPAY | PROVIDERS: PCP Physician Assistant; Visit Provider Nurse Practitioner Psychiatric/Mental Health | DX: Z51.81 Encounter for therapeutic drug level monitoring (principal); F11.20 Opioid dependence, uncomplicated | CPT/HCPCS: 99212 ==

== ENCOUNTER → 2022-07-10 14:04 | Outpatient (BNVA) | payer MEDICAID, SELFPAY | PROVIDERS: PCP Physician Assistant; Visit Provider Nurse Practitioner Psychiatric/Mental Health | DX: Z51.81 Encounter for therapeutic drug level monitoring (principal); F11.20 Opioid dependence, uncomplicated; F41.9 Anxiety disorder, unspecified | CPT/HCPCS: 80305; 99212 ==

== ENCOUNTER → 2022-07-24 14:25 | Outpatient (BNVA) | payer MEDICAID, SELFPAY | PROVIDERS: PCP Physician Assistant; Visit Provider Nurse Practitioner Psychiatric/Mental Health | DX: F11.20 Opioid dependence, uncomplicated (principal); F42.9 Obsessive-compulsive disorder, unspecified; Z51.81 Encounter for therapeutic drug level monitoring; Z79.899 Other long term (current) drug therapy | CPT/HCPCS: 80305; 99212 ==

== ENCOUNTER → 2022-08-07 14:04 | Outpatient (BNVA) | payer MEDICAID, SELFPAY | PROVIDERS: PCP Physician Assistant; Visit Provider Nurse Practitioner Psychiatric/Mental Health | DX: Z51.81 Encounter for therapeutic drug level monitoring (principal); F11.20 Opioid dependence, uncomplicated | CPT/HCPCS: 80305; 99212 ==

== ENCOUNTER → 2022-09-04 14:40 | Outpatient (BNVA) | payer MEDICAID, SELFPAY | PROVIDERS: PCP Physician Assistant; Visit Provider Nurse Practitioner Psychiatric/Mental Health | DX: F11.20 Opioid dependence, uncomplicated (principal); Z51.81 Encounter for therapeutic drug level monitoring; F42.9 Obsessive-compulsive disorder, unspecified; Z79.899 Other long term (current) drug therapy | CPT/HCPCS: 99212 ==

== ENCOUNTER → 2022-10-02 13:21 | Outpatient (BNVA) | payer MEDICAID, SELFPAY | PROVIDERS: PCP Physician Assistant; Visit Provider Nurse Practitioner Psychiatric/Mental Health | DX: Z51.81 Encounter for therapeutic drug level monitoring (principal); F11.20 Opioid dependence, uncomplicated; F42.9 Obsessive-compulsive disorder, unspecified | CPT/HCPCS: 80305; 99212 ==

== ENCOUNTER → 2022-10-30 13:18 | Outpatient (BNVA) | payer MEDICAID, SELFPAY | PROVIDERS: PCP Physician Assistant; Visit Provider Nurse Practitioner Psychiatric/Mental Health | DX: Z51.81 Encounter for therapeutic drug level monitoring (principal); F11.20 Opioid dependence, uncomplicated; F33.1 Major depressive disorder, recurrent, moderate | CPT/HCPCS: 80305; 99212 ==

== ENCOUNTER → 2022-11-27 10:55 | Outpatient (BNVA) | payer MEDICAID, SELFPAY | PROVIDERS: PCP Physician Assistant; Visit Provider Nurse Practitioner Psychiatric/Mental Health | DX: Z51.81 Encounter for therapeutic drug level monitoring (principal); F11.20 Opioid dependence, uncomplicated | CPT/HCPCS: 99212 ==

== ENCOUNTER → 2022-12-24 10:32 | Outpatient (BNVA) | payer MEDICAID, SELFPAY | PROVIDERS: PCP Physician Assistant; Visit Provider Nurse Practitioner Psychiatric/Mental Health | DX: Z51.81 Encounter for therapeutic drug level monitoring (principal); F11.20 Opioid dependence, uncomplicated | CPT/HCPCS: 99212 ==

== ENCOUNTER → 2023-01-21 13:09 | Outpatient (BNVA) | payer OTHER, SELFPAY | PROVIDERS: PCP Physician Assistant; Visit Provider Nurse Practitioner Psychiatric/Mental Health | DX: F11.20 Opioid dependence, uncomplicated (principal) | CPT/HCPCS: 99212 ==

== ENCOUNTER → 2023-02-18 13:10 | Outpatient (BNVA) | payer OTHER, SELFPAY | PROVIDERS: PCP Physician Assistant; Visit Provider Nurse Practitioner Psychiatric/Mental Health | DX: F11.20 Opioid dependence, uncomplicated (principal); F33.1 Major depressive disorder, recurrent, moderate; F42.9 Obsessive-compulsive disorder, unspecified | CPT/HCPCS: 99212 ==

== ENCOUNTER → 2023-03-18 12:58 | Outpatient (BNVA) | payer OTHER, SELFPAY | PROVIDERS: PCP Physician Assistant; Visit Provider Nurse Practitioner Psychiatric/Mental Health | DX: Z51.81 Encounter for therapeutic drug level monitoring (principal); F11.20 Opioid dependence, uncomplicated; F33.1 Major depressive disorder, recurrent, moderate | CPT/HCPCS: 99212 ==

== ENCOUNTER → 2023-04-15 14:05 | Outpatient (BNVA) | payer MEDICAID, SELFPAY | PROVIDERS: PCP Physician Assistant; Visit Provider Nurse Practitioner Psychiatric/Mental Health | DX: Z51.81 Encounter for therapeutic drug level monitoring (principal); F11.20 Opioid dependence, uncomplicated | CPT/HCPCS: 80305; 99212 ==

== ENCOUNTER 2023-05-13 14:16 | Outpatient (AMB) | payer MEDICAID, SELFPAY ==
--- NOTE | 2023-05-13 14:33 | A.OFFVIS_ITS ---
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 Discussed Sublocade as a possible option for this, reviewed medication, side effects and dosing. Also reviewed that using injection as tapering method is off label use, patient verbalized understanding. Patient would like to move forward with this. [facility] Medical History (Updated 05/13/23 @ 16:21 by Ashlee Villalobos CNP) Bipolar 2 disorder OCD (obsessive compulsive disorder) Opioid dependence on agonist therapy Social History Household Members: Significant Other Housing: Apartment Do you presently have visiting nurse or other home services: No Patient Tobacco Use Status: Current everyday Tobacco user Tobacco use type: Cigarette Cigarette Packs Per Day: 1 Cigarettes Per Day: 20.0 Years Smoked: 20 e-Cigarette/Vaping Use: Never Used Second Hand Smoke Exposure: Yes Substance Use Type: Opiates service: No Sexual orientation: Straight/Heterosexual Review of Systems Const Reports as per HPI and Reports no additional complaints Physical Exam Vital Signs: Last Vital Signs Pulse 54 05/13/23 14:40 BP 110/72 05/13/23 14:40 Pulse Ox 97 05/13/23 14:40 Oxygen Delivery Method Room Air 05/13/23 14:40 Const General: cooperative, healthy appearing, well developed, alert and anxious Nutritional Appearance: well nourished Orientation/consciousness: patient oriented x3 Limitations: no limitations Neuro General: patient oriented x3 Psych Other: Some anxiety, says managable. Appearance: grossly normal Mental Status: mental status grossly normal Speech and movement: Normal speech and movement present Affect: Anxious affect present Attitude: cooperative Thought process: Normal thought process present Thought content: Normal thought content present Insight: Fair insight present (Psych) Judgement: Good judgement present (Psych) Assessment & Plan Assessment & Plan (1) Opioid use disorder, moderate, dependence: Code(s): F11.20 - Opioid dependence, uncomplicated Plan: * continue suboxone at current dose * sublocade ordered * follow up 4 weeks Medications: New buprenorphine ER (Sublocade) 300 mg subcutaneously Q4 Wks; 1.5 mL 1RF Refilled buprenorphine-naloxone 8-2 mg (Suboxone) 1 film sublingual BID 60 ea 1RF Coding Level of Care Code Est Pt Level 4 (03723) Diagnoses Opioid use disorder, moderate, dependence F11.20
[2023-05-13 14:40] VITALS: BP 110/72; PULSE 54; O2SAT 97
== END 2023-05-13 15:09 | disposition home or self-care (01) ==
LOC: HO.HCC 14:17
PROVIDERS: PCP Physician Assistant; Visit Provider Nurse Practitioner Psychiatric/Mental Health
DX: F11.20 Opioid dependence, uncomplicated (principal)
CPT/HCPCS: 99214

== ENCOUNTER → 2023-05-13 14:16 | Outpatient (BNVA) | payer MEDICAID, SELFPAY | PROVIDERS: PCP Physician Assistant; Visit Provider Nurse Practitioner Psychiatric/Mental Health | DX: Z51.81 Encounter for therapeutic drug level monitoring (principal); F11.20 Opioid dependence, uncomplicated | CPT/HCPCS: 99214 ==

== ENCOUNTER 2023-06-18 14:22 | Outpatient (AMB) | payer MEDICAID, SELFPAY ==
--- NOTE | 2023-06-18 14:25 | AM.OFFVISNUR ---
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 Allergies No Known Allergies Allergy (Mild, Unverified 06/18/23 14:26) NONE Do you need a note to return to daycare/school/sports/work: No Results AMB 14 Panel Urine Drug Screen Urine Marijuana (THC) Negative Last Edit by Samantha Mckeon CMA on 06/18/23 14:34 Urine Cocaine Negative Last Edit by Samantha Mckeon CMA on 06/18/23 14:34 Urine Morphine Negative Last Edit by Samantha Mckeon CMA on 06/18/23 14:34 Urine Methamphetamine Negative Last Edit by Samantha Mckeon CMA on 06/18/23 14:34 Urine Amphetamine Negative Last Edit by Samantha Mckeon CMA on 06/18/23 14:34 Urine Benzodiazepine Negative Last Edit by Samantha Mckeon CMA on 06/18/23 14:34 Urine Barbiturates Negative Last Edit by Samantha Mckeon CMA on 06/18/23 14:34 Urine Methadone Negative Last Edit by Samantha Mckeon CMA on 06/18/23 14:34 Urine Buprenorphine Positive Last Edit by Samantha Mckeon CMA on 06/18/23 14:34 Urine Tricyclic Antidepressant Negative Last Edit by Samantha Mckeon CMA on 06/18/23 14:34 Urine MDMA Negative Last Edit by Samantha Mckeon CMA on 06/18/23 14:34 Urine Oxycodone Negative Last Edit by Samantha Mckeon CMA on 06/18/23 14:34 Urine Phencyclidine Negative Last Edit by Samantha Mckeon CMA on 06/18/23 14:34 Urine Propoxyphene Negative Last Edit by Samantha Mckeon CMA on 06/18/23 14:34 Coding Diagnoses Assessment & Plan Assessment & Plan Orders: Orders AMB 14 Panel Urine Drug Screen Today Z51.81 - Encounter for therapeutic drug level monitoring
[2023-06-18 14:32] VITALS: BP 126/74; PULSE 70; O2SAT 98
== END 2023-06-18 15:07 | disposition home or self-care (01) ==
LOC: HO.HCC 14:22
PROVIDERS: PCP Physician Assistant
DX: F11.20 Opioid dependence, uncomplicated (principal); Z51.81 Encounter for therapeutic drug level monitoring
CPT/HCPCS: Q9992

== ENCOUNTER → 2023-06-18 14:22 | Outpatient (BNVA) | payer MEDICAID, SELFPAY | PROVIDERS: PCP Physician Assistant | DX: Z51.81 Encounter for therapeutic drug level monitoring (principal); Z79.899 Other long term (current) drug therapy | CPT/HCPCS: 80305; 96372 ==